=== PATIENT | female | born 1990 | race Caucasian/White ===

== ENCOUNTER 2024-02-16 06:12 | Emergency (ER) | payer OTHER, MEDICAID, SELFPAY ==
[2024-02-16 06:20] VITALS: BP 168/93; PULSE 95; RESP 22; TEMP 37.3; O2SAT 97
[2024-02-16] MEDS: ALBUTEROL/IPRATROPIUM 3 ML AMPUL INH (06:26)
--- NOTE | 2024-02-16 06:26 | ED.ASTHMA ---
HPI - Asthma General Chief Complaint: Asthma Stated Complaint: asthma and hard to breath Time Seen by Provider: 02/16/24 06:16 Source: patient Mode of arrival: Ambulatory History of Present Illness HPI Narrative: 33-year-old female. Has a history of asthma. She states yesterday she started to have problems breathing and it has continued. States she was wheezing and coughing. No fevers. She was out of her albuterol inhaler. Related Data Previous Rx's Medication Instructions Recorded albuterol sulfate 90 mcg/actuation 2 puff inhalation Q4-6H PRN 02/16/24 aerosol inhaler shortness of breath or wheezing #8.5 grams Review of Systems Constitutional Constitutional: Reports system reviewed and no additional complaints, except as documented Cardiovascular Cardiovascular: Reports system reviewed and no additional complaints, except as documented Respiratory Respiratory: Reports system reviewed and no additional complaints, except as documented Patient History Social History Smoking Status: Current every day smoker Smoking Status: Current every day smoker alcohol intake frequency: 0-2 drinks per day Substance Use Type: former substance user Exam Initial Vital Signs Initial Vital Signs: Vital Signs Temperature 99.2 F 02/16/24 06:20 Pulse Rate 95 H 02/16/24 06:20 Respiratory Rate 22 02/16/24 06:20 Blood Pressure 168/93 H 02/16/24 06:20 Pulse Oximetry 97 02/16/24 06:20 Oxygen Delivery Method Room Air 02/16/24 06:20 Resp Effort & Inspection: cough, not labored, no respiratory distress and no retractions Auscultation: wheezes Course Orders Ordered: Discontinued Medications Albuterol/Ipratropium (Albuterol/Ipratropium 3 Ml Ampul) 3 ml INH NOW ONE Stop: 02/16/24 06:17 Last Admin: 02/16/24 06:26 Dose: 3 ml Vital Signs Vital signs: Vital Signs - 8 hr 02/16/24 06:20 02/16/24 06:27 Temperature 99.2 F Pulse Rate 95 H 105 H Respiratory Rate 22 18 Blood Pressure 168/93 H Pulse Oximetry 97 96 Oxygen Delivery Method Room Air Room Air Fraction of Inspired Oxygen 21 MDM - Asthma MDM Narrative Medical decision making narrative: Patient presents with diffuse bilateral wheezing. After 1 nebulizer treatment she did have improvement of her symptoms but still had some wheezing specifically on the right. Offered her a 2nd nebulizer but she states she felt well enough to go home. No fevers. Low suspicion for pneumonia. Will hold on any antibiotics. I did refill the patient's albuterol. She was given return precautions. She expressed understanding and agreement. Discharge Plan Departure Patient Disposition: Home Clinical Impression: Asthma with acute exacerbation Instructions: DI for Asthma -- Adult Activity Restrictions/Additional Instructions: A prescription for albuterol was sent to [facility] on [address] in [place]. Please use it as needed as directed. Return to the emergency department for new symptoms. Prescriptions: New albuterol sulfate 90 mcg/actuation HFA aerosol inhaler 2 puff inhalation Q4-6H PRN (Reason: shortness of breath or wheezing) Qty: 8.5 2RF Stand Alone Forms: Patient Portal/API
--- NOTE | 2024-02-16 06:26 | PC.NURSE ---
Pt sitting [facility] in [facility]. No accessory muscle use noted. RT called to room for treatment. RT in room.
[2024-02-16 06:27] VITALS: PULSE 105; RESP 18; O2SAT 96
[2024-02-16 06:40] VITALS: BP 133/87; PULSE 85; RESP 16; TEMP 36.9; O2SAT 94
== END 2024-02-16 06:42 | disposition home or self-care (01) ==
PROVIDERS: Emergency Provider Emergency Medicine
DX: J45.901 Unspecified asthma with (acute) exacerbation (principal); F17.210 Nicotine dependence, cigarettes, uncomplicated
CPT/HCPCS: 94640; 99283